=== PATIENT | female | born 1985 | race Caucasian/White ===

== ENCOUNTER 2018-01-25 10:51 | Inpatient (IN) | payer BC ==
[~2018-01-25] VITALS: Ht 170.2 cm; Wt 79.1 kg
[~2018-01-25 10:51] MED LIST: DICLOXACILLIN250 MG PO; IBU600 MG PO; MOTRIN 600600 MG/TAB PO; PRENATAL MVI PO
[2018-01-27] VITALS (33 sets, daily range): BP systolic 97–132; BP diastolic 50–76; PULSE 59–131; TEMP 98–98.7
[2018-01-27] MEDS ORDERED: PRENATAL1 TA7 PO (07:30)
[2018-01-27 08:11] LABS: BASO % 0.3 % (0.0-2.0); EOS # 0.1 (0.0-0.7); EOS % 0.7 % (0-4.0); GRAN # 6.9 (1.4-6.5); GRAN % 64.1 % (42.2-75.2); HEMOGLOBIN 12.3 g/dl (12.5-16.0); LYMPH # 2.8 (1.2-3.4); LYMPH % 25.7 % (20.0-51.0); MEAN CELL VOLUME 92 fl (80.0-100.0); MEAN CORPUSCULAR HEMOGLOBIN 32 pg (27.0-31.0); MEAN CORPUSCULAR HGB CONC 34 g/dl (33.0-37.0); MEAN PLATELET VOLUME 11.2 fl (7.4-10.4); MONO # 0.9 (0.1-0.6); MONO % 8.6 % (1.7-9.3); PLATELET COUNT 285 K/mm3 (130-400); REDCELL DISTRIBUTION WIDTH-CV 14.2 % (11.5-14.5)
[2018-01-27 08:13] LABS: HEMATOCRIT 35.9 % (37.0-47.0)
[2018-01-28 00:40] VITALS: BP 110/56; PULSE 86; TEMP 98.6
[2018-01-28 04:15] VITALS: BP 102/57; PULSE 68; TEMP 98.3
[2018-01-28 07:21] LABS: HEMATOCRIT 33.9 % (37.0-47.0); HEMOGLOBIN 11.2 g/dl (12.5-16.0)
[2018-01-28] MEDS ORDERED: MOTRIN 600600 MG/TAB PO (07:54)
[2018-01-28 09:29] VITALS: BP 118/58; PULSE 72; TEMP 98.3
== END 2018-01-28 15:20 | disposition home or self-care (01) | DRG 775 ==
LOC: LDR 10:51 → OB 01-27 16:00
PROVIDERS: Obstetrics & Gynecology
PROC: 10E0XZZ Delivery of Products of Conception, External Approach (ICD-10-PCS; principal; 2018-01-27)
PROC: 0KQM0ZZ Repair Perineum Muscle, Open Approach (ICD-10-PCS; 2018-01-27)
PROC: 10907ZC Drainage of Amniotic Fluid, Therapeutic from Products of Conception, Via Natural or Artificial Opening (ICD-10-PCS; 2018-01-27)
PROC: 3E033VJ Introduction of Other Hormone into Peripheral Vein, Percutaneous Approach (ICD-10-PCS; 2018-01-27)
DX: O70.1 Second degree perineal laceration during delivery (principal); Z37.0 Single live birth; Z3A.39 39 weeks gestation of pregnancy
CPT/HCPCS: J2590; J7120

== ENCOUNTER → 2020-04-30 | Outpatient (CLI) | payer BC ==
[~2020-04-30] MED LIST changes: +NATURAL IRON65 MG; +PRENATAL1 TA7 PO
== END | disposition still patient (30) ==
LOC: ZCOL.LAB
DX: Z20.828 Contact with and (suspected) exposure to other viral communicable diseases (principal)

== ENCOUNTER 2020-05-02 06:03 | Inpatient (IN) | payer BC ==
[2020-05-02] VITALS (22 sets, daily range): BP systolic 100–141; BP diastolic 53–69; PULSE 67–106; TEMP 98–98.7
[~2020-05-02] VITALS: Ht 170.2 cm; Wt 80.5 kg
--- NOTE | 2020-05-02 05:30 | NUR ---
Pt arrived on unit ambulatory, escorted by and with complaints of contractions all night worsening around 3am. Pt denies any leaking of fluid or vaginal bleeding and reports normal movement. EFM and toco monitors started. Vital signs WNL. SVE by this RN 2-/2. Plan of care for labor assessment reviewed. Call light within reach.
[2020-05-02 08:32] LABS: BASO % 0.3 % (0.0-2.0); EOS # 0.1 (0.0-0.7); EOS % 0.7 % (0-4.0); GRAN % 72.7 % (42.2-75.2); HEMOGLOBIN 12.4 g/dl (12.5-16.0); LYMPH # 2.5 (1.2-3.4); MEAN CELL VOLUME 94 fl (80.0-100.0); MEAN CORPUSCULAR HEMOGLOBIN 31 pg (27.0-31.0); MEAN CORPUSCULAR HGB CONC 34 g/dl (33.0-37.0); MEAN PLATELET VOLUME 11.8 fl (7.4-10.4); MONO % 7.5 % (1.7-9.3); PLATELET COUNT 267 K/mm3 (130-400); RED BLOOD COUNT 3.95 M/mm3 (4.10-5.30); REDCELL DISTRIBUTION WIDTH-CV 14.1 % (11.5-14.5)
--- NOTE | 2020-05-02 10:15 | NUR ---
0954- Pt assisted onto Birthing ball. FHR monitor adjusted. 1005- FHR monitor tracing maternal HR during UCs, adjusted. O2 sat monitor on and tracing maternal HR.
--- NOTE | 2020-05-02 11:22 | NUR ---
1106- Pt complaining of pressure with UCs. SVE 9/100/0. Pt encouaraged to breath through UCs. Pt tolerating well. 1109- Pitocin off. Pt and room prepped for delivery. Dipti, ROLAND and Renetta Delgado, nursery RN at bedside. 1119- Dr Victoria at bedside. Bed broken down for delivery. Pt pushes with UCs. 1122- of viable female infant, to mother's abd, tended to by nursery RN. Cord clamped and cut. Cord blood obtained. 1127- Spontaneous delivery of placenta, Pitocin on at 333ml/hr. Fundus massaged to firm by . 2nd degree laceration repaired using Lidocaine. Pt tolerated well. Pericare completed. Ice pack and clean chux under Pt.
--- NOTE | 2020-05-02 13:45 | NUR ---
1345- Pt ambulates to bathroom independently with this RN standby, voids 150mls. Pericare completed and explained. Peripad, Tucks, and underwear on. Pt ambulates to PP room independently with RN and . Oriented to room, call light within reach.
[2020-05-03 03:00] VITALS: BP 101/52; PULSE 88; TEMP 97.8
[2020-05-03 07:00] VITALS: BP 112/58; PULSE 79; TEMP 97.9
[2020-05-03 07:10] LABS: HEMATOCRIT 36.3 % (37.0-47.0)
[2020-05-03] MEDS ORDERED: IBU600 MG PO (08:22)
--- NOTE | 2020-05-03 09:14 | NUR ---
Initial visit; Parents thanked Lead Process Engineer for offering Congratulations and God's blessings for the of their daughter. Lead Process Engineer thanked family for choosing [facility].
[2020-05-03 11:09] VITALS: BP 113/61; PULSE 89; TEMP 98.1
[2020-05-03 16:23] VITALS: BP 113/48; PULSE 65; TEMP 99
[2020-05-03 21:00] VITALS: BP 112/61; PULSE 81; TEMP 98.9
[2020-05-04 07:25] VITALS: BP 113/61; PULSE 75; TEMP 98.3
== END 2020-05-04 13:28 | disposition home or self-care (01) | DRG 807 ==
LOC: LDRO 06:03 → LDR 07:02 → OB 13:45
PROVIDERS: ADMIT Obstetrics & Gynecology
PROC: 10E0XZZ Delivery of Products of Conception, External Approach (ICD-10-PCS; principal; 2020-05-02)
PROC: 0KQM0ZZ Repair Perineum Muscle, Open Approach (ICD-10-PCS; 2020-05-02)
PROC: 10907ZC Drainage of Amniotic Fluid, Therapeutic from Products of Conception, Via Natural or Artificial Opening (ICD-10-PCS; 2020-05-02)
DX: O99.02 Anemia complicating childbirth (principal); Z37.0 Single live birth; D64.9 Anemia, unspecified; O99.824 Streptococcus B carrier state complicating childbirth; O70.1 Second degree perineal laceration during delivery; Z3A.39 39 weeks gestation of pregnancy
CPT/HCPCS: J2540; J2590; J7120